=== PATIENT | female | born 1955 | race Caucasian/White ===

== ENCOUNTER 2020-10-31 15:28 | Emergency (ER) | payer OTHER ==
[~2020-10-31] VITALS: Ht 167.6 cm; Wt 73.5 kg
--- NOTE | 2020-11-02 17:12 | EKG ---
[facility] [address] [facility] [place] [address] Signed Normal sinus rhythm Possible Left atrial enlargement Borderline ECG No previous ECGs available Confirmed by MARIO HAND MD ([id number]) on 11/02/2020 5:12:31 PM Electronically Signed By: MARIO HAND MD 11/02/20 1712 PATIENT NAME: ELSY BENNETT LOUISE Electrocardiogram DATE OF : 59 PHYSICIAN: MARIO HAND MD REPORT #: [id number] REPORT IS CONFIDENTIAL AND NOT TO BE RELEASED WITHOUT AUTHORIZATION
== END 2020-10-31 17:23 | disposition home or self-care (01) ==
LOC: ED 15:28
DX: R55 Syncope and collapse (principal)
CPT/HCPCS: 71045; 80053; 84484; 85025; 93005; 93010; 99284-25; J7030